=== PATIENT | male | born 1955 | race Caucasian/White ===

== ENCOUNTER 2016-08-28 17:03 | Inpatient (IN) | payer OTHER ==
--- NOTE | ~2016-08-28 | HP ---
History And Physical [facility] [address] [place]. [address] NAME: MERLYN FREEMAN : 59 STATUS : ADM IN [facility]#: [id number] AGE: 60 ADM/REG DATE : 08/28/16 MR#: [id number] REPORT SERV DATE: 08/29/16 DICTATED BY: AQUILES SCHWARTZ DATE: 08/28/16 REPORT STATUS : Draft TRANSCRIBED BY: MODL DATE: 08/28/16 DATE OF ADMISSION: 08/28/2016 CHIEF COMPLAINT: Abdominal pain and fever. HISTORY OF PRESENT ILLNESS: This is a 60-year-old male with a one-day history of intermittent, sharp, and stabbing infraumbilical/suprapubic pain. Denies alleviating or exacerbating factors and states the pain does not radiate. Patient also with a one-week history of fevers and productive cough. The patient states he was recovering from a flu earlier this month, however, cough and fevers returned about a week ago. Patient with a positive fever of 101.5 at home last night. Patient with significant amount of nausea but no emesis. Positive anorexia. Denies changes in bowel movements. Last normal bowel movement was yesterday and was nonbloody. CT scan of abdomen and pelvis was performed and reviewed with evidence of sigmoid diverticulitis and a small contained perforation. The patient denies previous episodes of diverticulitis. REVIEW OF SYSTEMS: A 10-point review of systems was completed and otherwise negative unless stated in the HPI. PAST MEDICAL HISTORY: Heterozygous for factor V Leiden and depression. SURGICAL HISTORY: None. SOCIAL HISTORY: No tobacco or illicit drug use. Occasional alcohol use. MEDICATIONS: Aspirin and Celexa. ALLERGIES: NO KNOWN DRUG ALLERGIES. FAMILY HISTORY: Mom with diabetes. Dad and brother with cardiac disease. Multiple family members heterozygous for factor 5 Leiden. LABORATORY DATA: White blood count 11.3, hemoglobin 17.9, hematocrit 52.1, and platelets 133. Sodium 138, potassium 4.2, chloride 101, bicarb 26, BUN 13, creatinine 1.11, lactate 1.1, and glucose 105. PHYSICAL EXAMINATION: VITAL SIGNS: Temperature 98.9, blood pressure 143/87, pulse 88, respirations 16, and O2 saturation 97% on room air. GENERAL: In no acute distress. Alert and oriented x3. HEENT: Normocephalic and atraumatic. Extraocular muscles intact. NECK: Supple. Trachea midline. CARDIOVASCULAR: Regular rate and rhythm. LUNGS: Clear to auscultation bilaterally. EXTREMITIES: No cyanosis, clubbing, or edema. NEUROLOGIC: No deficits. History And Physical [address] [place]. [address] NAME: MERLYN FREEMAN : 59 STATUS : ADM IN [facility]#: [id number] AGE: 60 ADM/REG DATE : 08/28/16 MR#: [id number] REPORT SERV DATE: 08/29/16 DICTATED BY: AQUILES SCHWARTZ TAISHA DATE: 08/28/16 REPORT STATUS : Draft TRANSCRIBED BY: RADHA DATE: 08/28/16 ABDOMEN: Soft, nondistended, and obese. Tender to palpation to the suprapubic area. Also tenderness to palpation in the left lower quadrant with rebound and some guarding. ASSESSMENT AND PLAN: This is a 60-year-old male with acute diverticulitis. We will admit for bowel rest, IV fluid resuscitation, pain and nausea control, and IV antibiotics. DICTATED BY: Hima Maria MD FD/RADHA Aquiles Schwartz MD / [id number]
[2016-08-28 15:36] LABS: BASOPHILS 0.1 %; BASOPHILS ABSOLUTE 0.01 10/3/uL (0.0-0.16); EOSINOPHILS 0.4 %; EOSINOPHILS ABSOLUTE 0.04 10/3/uL (0.0-0.53); HEMOGLOBIN 17.9 g/dL (13.6-17.8); IMMATURE GRANULOCYTES 0.3 %; IMMATURE GRANULOCYTES ABSOLUTE 0.03 10/3/uL (0.0-0.11); LYMPHOCYTES 12.8 %; LYMPHOCYTES ABSOLUTE 1.45 10/3/uL (0.67-4.30); MEAN CORPUS HGB CONC 34.4 g/dL (32.0-36.0); MEAN CORPUSCULAR HEMOGLOB 33.5 pg (26.0-34.0); MEAN CORPUSCULAR VOLUME 97.6 fL (80-100); MONOCYTES 8.4 %; MONOCYTES ABSOLUTE 0.95 10/3/uL (0.21-1.20); NEUTROPHILS ABSOLUTE 8.83 10/3/uL (2.02-8.40); PLATELET COUNT 153 10/3/uL (150-400); RBC DISTRIBUTION WIDTH 13.7 % (12.0-16.0); RED CELL COUNT 5.34 10/6/uL (4.7-6.1)
[2016-08-28 15:40] LABS: ER CBC TAT 0 Hrs 10 Mins; HEMATOCRIT 52.1 % (40.0-51.0); MANUAL DIFF NO %; WHITE BLOOD CELLS 11.3 10/3/uL (4.5-10.5)
[2016-08-28 15:46] LABS: ASCORBIC ACID (UR NOT ORDER) NEG (NEG); BILIRUBIN, URINE NEGATIVE (NEG); ER URINALYSIS TAT 0 Hrs 11 Mins; KETONE, URINE NEGATIVE (NEG); LEUKOCYTE ESTERASE(NOT OR NEG (NEG); NITRITE (URINE) NEG (NEG); WBC (NOT ORDERED) (RFLEX) 2 (0-5)
[2016-08-28 15:53] LABS: CALCIUM, SERUM 9.3 MG/DL (8.5-10.4); CHLORIDE, SERUM 101 MMOL/L (96-112); CO2 (CARBON DIOXIDE) 26 MMOL/L (24-34); CREATININE 1.11 MG/DL (0.70-1.30); GFR AFRICAN AMERICAN 84 ML/MIN (>=60); GFR NON AFRICAN AMERICAN 73 ML/MIN (>=60); GLUCOSE, SERUM 105 MG/DL (60-99); POTASSIUM, SERUM 4.2 MMOL/L (3.5-5.3); SGOT(AST) 15 U/L (5-40); SGPT(ALT) 55 U/L (5-65); SODIUM, SERUM 138 MMOL/L (135-148); TOTAL PROTEIN 7.7 G/DL (6.0-8.5)
[2016-08-28 15:58] LABS: ALBUMIN 3.8 G/DL (3.5-5.0); ALKALINE PHOSPHATASE 74 U/L (45-117); BUN (BLOOD UREA NITROGEN) 13 MG/DL (6-23); GLOBULIN 3.9 G/DL (2.5-4.1); TOTAL BILIRUBIN 1.6 MG/DL (0-1.2)
[2016-08-28 16:04] LABS: INFLUENZA A SCREEN NEGATIVE (NEGATIVE); INFLUENZA B SCREEN NEGATIVE (NEGATIVE)
[~2016-08-28 17:03] MED LIST: ASAEC PO; CELEXA20 PO; TESTOSTERONE TOP
[2016-08-28 17:34] LABS: LACTATE 1.1 MMOL/L (0.3-2.4)
[2016-08-28] MEDS ORDERED: CELEXA20 PO (18:17)
[2016-08-28] MEDS ORDERED: ASABAYER PO (18:17)
[2016-08-28] MEDS ORDERED: ANDROGEL2.5 GM TOP (18:19)
[2016-08-29 06:51] LABS: BASOPHILS 0.1 %; BASOPHILS ABSOLUTE 0.01 10/3/uL (0.0-0.16); EOSINOPHILS 0.6 %; EOSINOPHILS ABSOLUTE 0.06 10/3/uL (0.0-0.53); HEMOGLOBIN 15.7 g/dL (13.6-17.8); IMMATURE GRANULOCYTES 0.2 %; IMMATURE GRANULOCYTES ABSOLUTE 0.02 10/3/uL (0.0-0.11); LYMPHOCYTES 11.7 %; MEAN CORPUS HGB CONC 34.7 g/dL (32.0-36.0); MEAN CORPUSCULAR HEMOGLOB 34.5 pg (26.0-34.0); MEAN CORPUSCULAR VOLUME 99.6 fL (80-100); MEAN PLATELET VOLUME 11.1 fL (9.2-13.0); MONOCYTES ABSOLUTE 1.03 10/3/uL (0.21-1.20); NEUTROPHILS 77.4 %; NEUTROPHILS ABSOLUTE 7.94 10/3/uL (2.02-8.40); PLATELET COUNT 139 10/3/uL (150-400); RBC DISTRIBUTION WIDTH 13.6 % (12.0-16.0); RED CELL COUNT 4.55 10/6/uL (4.7-6.1); WHITE BLOOD CELLS 10.3 10/3/uL (4.5-10.5)
[2016-08-29 06:56] LABS: HEMATOCRIT 45.3 % (40.0-51.0); MANUAL DIFF NO %
[2016-08-29 06:57] LABS: BUN (BLOOD UREA NITROGEN) 12 MG/DL (6-23); CALCIUM, SERUM 8.4 MG/DL (8.5-10.4); CHLORIDE, SERUM 103 MMOL/L (96-112); CO2 (CARBON DIOXIDE) 23 MMOL/L (24-34); CREATININE 1.03 MG/DL (0.70-1.30); GFR AFRICAN AMERICAN 92 ML/MIN (>=60); GFR NON AFRICAN AMERICAN 80 ML/MIN (>=60); POTASSIUM, SERUM 3.7 MMOL/L (3.5-5.3); SODIUM, SERUM 137 MMOL/L (135-148)
[2016-08-29 06:58] LABS: GLUCOSE, SERUM 139 MG/DL (60-99)
[2016-08-30 06:42] LABS: BASOPHILS 0.1 %; BASOPHILS ABSOLUTE 0.01 10/3/uL (0.0-0.16); EOSINOPHILS 0.8 %; EOSINOPHILS ABSOLUTE 0.07 10/3/uL (0.0-0.53); HEMATOCRIT 43.5 % (40.0-51.0); HEMOGLOBIN 14.8 g/dL (13.6-17.8); IMMATURE GRANULOCYTES 0.2 %; IMMATURE GRANULOCYTES ABSOLUTE 0.02 10/3/uL (0.0-0.11); LYMPHOCYTES 11.5 %; LYMPHOCYTES ABSOLUTE 1.01 10/3/uL (0.67-4.30); MEAN CORPUSCULAR HEMOGLOB 34.3 pg (26.0-34.0); MEAN CORPUSCULAR VOLUME 100.7 fL (80-100); MEAN PLATELET VOLUME 11.2 fL (9.2-13.0); MONOCYTES 9.6 %; MONOCYTES ABSOLUTE 0.84 10/3/uL (0.21-1.20); NEUTROPHILS 77.8 %; NEUTROPHILS ABSOLUTE 6.81 10/3/uL (2.02-8.40); PLATELET COUNT 137 10/3/uL (150-400); RBC DISTRIBUTION WIDTH 13.6 % (12.0-16.0); RED CELL COUNT 4.32 10/6/uL (4.7-6.1); WHITE BLOOD CELLS 8.8 10/3/uL (4.5-10.5)
[2016-08-30 06:45] LABS: MANUAL DIFF NO %
[2016-08-30 06:58] LABS: BUN (BLOOD UREA NITROGEN) 11 MG/DL (6-23); CALCIUM, SERUM 8.3 MG/DL (8.5-10.4); CHLORIDE, SERUM 106 MMOL/L (96-112); CO2 (CARBON DIOXIDE) 23 MMOL/L (24-34); CREATININE 1.09 MG/DL (0.70-1.30); GFR AFRICAN AMERICAN 86 ML/MIN (>=60); GFR NON AFRICAN AMERICAN 74 ML/MIN (>=60); SODIUM, SERUM 138 MMOL/L (135-148)
[2016-08-30 07:01] LABS: GLUCOSE, SERUM 258 MG/DL (60-99); POTASSIUM, SERUM 4.6 MMOL/L (3.5-5.3)
[2016-08-30] MEDS ORDERED: FLAG500TAB PO (12:28)
[2016-08-30] MEDS ORDERED: LEVAQUIN750 MG PO (12:29)
[2016-08-30] MEDS ORDERED: NORCO1 TA1 PO (12:30)
== END 2016-08-30 13:10 | disposition home or self-care (01) | DRG 392 ==
LOC: ER 17:03 → ER/OF 19:33 → 1SO 23:04
PROVIDERS: Hospitalist; Nurse Practitioner; Student in an Organized Health Care Education/Training Program; Thoracic Surgery (Cardiothoracic Vascular Surgery)
DX: K57.20 Diverticulitis of large intestine with perforation and abscess without bleeding (principal); Z68.41 Body mass index [BMI] 40.0-44.9, adult; E66.9 Obesity, unspecified; F32.9 Major depressive disorder, single episode, unspecified; Z79.82 Long term (current) use of aspirin; Z79.899 Other long term (current) drug therapy
CPT/HCPCS: 71020; 74176; 80048; 80053; 81001; 82962; 83605; 85025; 87040; 87804; 99285; A9270-GY; C9113; J1956

== ENCOUNTER 2016-09-04 13:36 | Inpatient (IN) | payer OTHER ==
--- NOTE | ~2016-09-04 | HP ---
History And Physical [address] [place]. [address] NAME: MERLYN FREEMAN : 59 STATUS : ADM IN [facility]#: [id number] AGE: 60 ADM/REG DATE : 09/04/16 MR#: [id number] REPORT SERV DATE: 09/04/16 DICTATED BY: AQUILES SCHWARTZ DATE: 09/04/16 REPORT STATUS : Draft TRANSCRIBED BY: MODL DATE: 09/04/16 DATE OF ADMISSION: 09/04/2016 CHIEF COMPLAINT: Abdominal pain and fever. HISTORY OF PRESENT ILLNESS: Mr. Freeman is a very pleasant 60-year-old man who was recently admitted on between 08/28/2016 and 08/30/2016 with sigmoid diverticulitis with microperforations. He responded very well to Levaquin and Flagyl. The patient reports he did well through the weekend, and then beginning Friday, he started having fatigue and slight shortness of breath. By yesterday, he was starting to have worsening abdominal pain, and by today, he was unable to stand and was febrile. He reports continued bowel movements with no blood in his stools, no vomiting. He continued to take his antibiotics. PAST MEDICAL HISTORY: Includes factor V Leiden and depression. PAST SURGICAL HISTORY: None. HOME MEDICATIONS: Aspirin, Celexa, and the previously mentioned antibiotics. ALLERGIES: NO KNOWN DRUG ALLERGIES. FAMILY HISTORY: His mother has diabetes. Dad and brother, both have cardiac disease and has multiple members in the family with factor V Leiden. SOCIAL HISTORY: He denies tobacco or alcohol abuse. He drinks alcohol socially and he works as a pharmacist. REVIEW OF SYSTEMS: A comprehensive 12-point review of systems was obtained and is negative except for that listed in his present illness. Of note, he has no dysuria or pneumaturia. PHYSICAL EXAMINATION: VITAL SIGNS: Temperature is 98.1, blood pressure 138/95, heart rate is 83, sat 97% on room air. GENERAL: He is ill appearing, but no acute distress. Alert and orient x3. HEENT: Normocephalic and atraumatic. Pupils equal, round, and reactive to light. No scleral icterus. CHEST: Clear to auscultation bilaterally. Nonlabored breathing. CARDIOVASCULAR: Regular rate and rhythm. ABDOMEN: Soft and obese. He has tender to palpation in the left lower quadrant. However, it is still less than he was at his previous admission. He has no peritonitis. EXTREMITIES: Both lower extremities are well perfused. No edema. LABORATORY VALUES: White blood cell count 12.4, hematocrit 49.4, platelets 185, neutrophils 79.9%. Sodium 137, potassium 4.2, chloride 101, bicarb 29, BUN 14, creatinine 1.3 which was 1.09 at discharge, glucose 105, calcium 9.2. Albumin 3.4, LFTs are normal. Lipase is 86. History And Physical [address] [address] NAME: MERLYN FREEMAN : 59 STATUS : ADM IN [facility]#: [id number] AGE: 60 ADM/REG DATE : 09/04/16 MR#: [id number] REPORT SERV DATE: 09/04/16 DICTATED BY: AQUILES SCHWARTZ DATE: 09/04/16 REPORT STATUS : Draft TRANSCRIBED BY: MODSyed DATE: 09/04/16 CT scan was personally reviewed and agree he has worsening sigmoid diverticulitis with what appears to my mind would be pericolic abscess in the mesentery adjacent to his sigmoid colon. There is no free air or free fluid, otherwise. ASSESSMENT AND PLAN: Mr. Freeman is a 60-year-old man with persistent worsening diverticulitis with what appears to be a pericolic abscess. He will be admitted to the hospital, n.p.o., except ice chips, and medications. IV fluid resuscitation. I will change his antibiotics to Zosyn from Levaquin and Flagyl. Given his factor V Leiden, we will start him on Lovenox and continue his aspirin. We will hold that dose in the morning in the event that [facility] plans to take him for procedure. I suspect he will require an operation at some point, however, we will attempt to get him through this initial period in order to be able to perform a bowel prep and potential laparoscopic resection. MAURISIO/RADHA Aquiles Schwartz MD / [id number] CC: MD DAGO Kahn RAUL ALBERTO
--- NOTE | ~2016-09-04 | OP ---
Record Of Operation [facility] [address] [place]. [address] NAME: MERLYN FREEMAN : 59 STATUS : DIS IN PAT#: [id number] AGE: 60 ADM/REG DATE : 09/04/16 MR#: [id number] REPORT SERV DATE: 09/13/16 DICTATED BY: AQUILES SCHWARTZ DATE: 09/13/16 REPORT STATUS : Draft TRANSCRIBED BY: MODL DATE: 09/13/16 DATE OF PROCEDURE: 09/11/2016 PREOPERATIVE DIAGNOSIS: Perforated diverticulitis with abscess. POSTOPERATIVE DIAGNOSIS: Perforated diverticulitis with abscess. PROCEDURE: 1. Laparoscopic sigmoid colectomy with stapled end-to-end anastomosis. 2. Laparoscopic mobilization of the splenic flexure. SURGEON: Aquiles Schwartz MD AUTOMOTIVE UPHOLSTERER: Dr. Schmitt. ANESTHESIA: General. ESTIMATED BLOOD LOSS: 250 mL. SPECIMEN: Sigmoid colon. COMPLICATIONS: None. BRIEF HISTORY: Mr. Freeman is a 60-year-old man, who had initially presented with complicated diverticulitis which resolved with antibiotics. He returned approximately one week later with an abscess. IR drain was placed and he began draining stool from this drain. We elected for surgery, ERAS protocol was initiated. The procedure with the risks including bleeding, infection, possible open, anastomotic leak leading to ostomy were all explained, he agreed to proceed. DESCRIPTION OF PROCEDURE: The abdomen was prepped and draped in normal sterile fashion. We proceeded to the supraumbilical area, with a cutdown technique and inserted a 12 mm trocar at this site. We inserted the scope and the abdomen was insufflated to 15 mmHg of gas. There is no evidence of injury upon placement of trocar. We then placed a 5 mm trocar in the epigastric region in the midline, additional 5 mm trocar in the left upper quadrant, and then one in the left lower quadrant. Placed the patient in Trendelenburg position. He was placed in lithotomy position preoperatively, and roll the table to the right. We began by taking down the splenic flexure. We started at the midportion of the descending colon, scored the peritoneum at the white line of Toldt, and took the LigaSure device to divide the peritoneal up to the spleen. We then retracted the colon caudal, and took down the peritoneal, and the omental attachments away from the spleen, until we had adequate mobilization in order to complete our anastomosis. We then continued dissecting the peritoneum away from the kidney, and the mesentery down, and we continued our dissection down to the area of concern. The sigmoid colon was plastered along the lateral sidewall of the abdomen and pelvis. We had removed the drain preoperatively. We then placed an Record Of Operation [facility] [address] [place]. [address] NAME: MERLYN FREEMAN : 59 STATUS : DIS IN PAT#: [id number] AGE: 60 ADM/REG DATE : 09/04/16 MR#: [id number] REPORT SERV DATE: 09/13/16 DICTATED BY: AQUILES SCHWARTZ DATE: 09/13/16 REPORT STATUS : Draft TRANSCRIBED BY: RADHA DATE: 09/13/16 additional 12 mm trocar in the right lower quadrant and moved the camera to that site. We began by scoring the peritoneum over the sigmoid colon and carefully dissected this away from the lateral sidewall. We then proceeded down to the rectum where the bowel was normal in appearance, and continued this dissection both bluntly, and with electrocautery until we were able to completely mobilize the sigmoid colon away from the lateral sidewall. We then elevated the colon, and identified our area for proximal resection, and then we created a window beneath the colon at this site. We then proceeded by dividing the mesentery from this site down to the peritoneal reflection. Once, we had the entirety of the mesentery mobilized, we elected to enlarge our incision and in order to remove the specimen. We first placed the LILLI stapler with a thick load into the pelvis, and divided the rectosigmoid junction. We then enlarged our incision from the supraumbilical area around the umbilicus and placed a wound protector. We then extracted the specimen through this site and then placed bowel clamps and divided the bowel and passed off the field. We then brought a 29 EEA into the field and elected to sew this into place to do an end-to-end anastomosis. Placed the anvil within the bowel and secured it using a 2-0 Prolene pursestring suture. We then dropped it back into the abdomen and twisted our wound protector to regain pneumoperitoneum. We then placed the EEA stapler into the anus and up to the staple line. We brought the spike out anterior to the staple line and then the two ends. We were able to then fire the stapler and we had two intact donuts. We irrigated the pelvis. Hemostasis was good. We then used a sigmoidoscopy to insufflate and test our anastomosis under water. There were no bubbles. We then irrigated the left lower quadrant and the pelvis copiously until clear. Hemostasis was good. We then removed all trocars under direct visualization. There was no evidence of bleeding. The abdomen was desufflated. We then closed the fascia at the extraction site using interrupted #1 PDS suture. All skin incisions were irrigated with sterile saline. The skin was closed using interrupted 3-0 Vicryl sutures. The abdomen is cleaned and sterile dressings were applied. The patient tolerated the procedure well, he was extubated in the operating room, and he was sent to the recovery room in stable condition. Due to the patient's body habitus as he was obese, as well as difficulty of the case, secondary to severe diverticulitis with abscess, as well as time taking an excess of 3.5 hours, I am applying a 22 modifier to this case. MAURISIO/SANDORL Aquiles Schwartz MD / [id number] CC: MD DAGO Kahn RAUL ALBERTO
--- NOTE | ~2016-09-04 | DS ---
Discharge Summary [facility] [address] [place]. [address] NAME: MERLYN FREEMAN : 59 STATUS : DIS IN PAT#: [id number] AGE: 60 ADM/REG DATE : 09/04/16 MR#: [id number] REPORT SERV DATE: 09/20/16 DICTATED BY: AQUILES SCHWARTZ DATE: 09/20/16 REPORT STATUS : Draft TRANSCRIBED BY: MODSyed DATE: 09/20/16 Data Collection from hospitalization DISCHARGE DIAGNOSES: 1. Perforated diverticulitis with abscess. 2. Factor V Leiden. 3. Depression. CONSULTATIONS: None. PROCEDURES: 1. Laparoscopic sigmoid colectomy with stapled end-to-end anastomosis, laparoscopic mobilization of the splenic flexure, 09/11/2016. 2. CT scan of the abdomen and pelvis without contrast, 09/04/2016. 3. Pelvic drain placement for pericolonic abscess related to diverticulitis, 09/05/2016. 4. CT scan of the abdomen and pelvis with contrast, 09/08/2016. PATHOLOGY: Resected segment of sigmoid colon - benign colonic wall with diverticulosis and acute and chronic diverticulitis with deep inflammatory tract with granulation tissue. Microabscess formation and foreign body type giant cell reaction with reactive serosal changes. Margins not involved with the inflammatory process. Seven benign lymph nodes negative for metastatic carcinoma (0/7). Anastomotic rings - within normal limits. DISCHARGE MEDICATIONS: Mehnaz Aspirin 325 mg every morning, Celexa 20 mg every morning, Endocet 7.5/325 one to two tablets every four hours as needed, AndroGel four sprays topically daily. CONDITION AT DISCHARGE: Stable. DISPOSITION: The patient was discharged home on a moderately low residue diet with activities as instructed. He would follow up with me, 09/17/2016. HOSPITAL COURSE: This is a 60-year-old man, who had recently been admitted on 08/28/2016 and 08/30/2016 with sigmoid diverticulitis with microperforation. He responded very well to Levaquin and Flagyl. He reports that he did well through the weekend and then beginning on Friday, he started having fatigue and slight shortness of breath. By the day prior to admission, he was starting to have worsening abdominal pain, and by the day of this admission, he was unable to stand and he was febrile. He reported having continued bowel movements with no blood in the stools and no vomiting. He continued to take his antibiotics. He was admitted to the hospital at this time for further evaluation and treatment. Upon admission, his white count was 12.4. Creatinine level was 1.3. It had been 1.09 at the time of discharge. A CT scan of the abdomen and pelvis without contrast had shown worsening sigmoid diverticulitis with what appeared to be pericolic abscess in the mesentery adjacent to his sigmoid colon. There was no free air, otherwise. He was held n.p.o. except for ice chips and medications. IV fluid resuscitation was started. His antibiotics were going to be changed to Zosyn from Levaquin and Flagyl. Given his factor V Leiden, we were Discharge Summary [address] [place]. [address] NAME: MERLYN FREEMAN : 59 STATUS : DIS IN PAT#: [id number] AGE: 60 ADM/REG DATE : 09/04/16 MR#: [id number] REPORT SERV DATE: 09/20/16 DICTATED BY: AQUILES SCHWARTZ DATE: 09/20/16 REPORT STATUS : Draft TRANSCRIBED BY: RADHA DATE: 09/20/16 going to start him on Lovenox and continue his aspirin. That dose would be held the following morning in the event that [facility] may take him for a procedure. It was suspected that he would require an operation at some point; however, we would attempt to get him through this initial period in order to be able to perform a bowel prep and potential laparoscopic resection. The following day, he underwent pelvic drain insertion for pericolonic abscess related to diverticulitis; 60-80 mL of pus was evacuated. He had no lower extremity edema. His abdomen was soft. He did have some tenderness to palpation in the left lower quadrant. The drain remained in place. His acute kidney injury was felt due to prerenal azotemia. A fluid bolus was given. On 09/06/2016, he said he was feeling a little better. His T-max was 100. He had drained about 30 mL, but this looked spiculant. He had no lower extremity edema. Creatinine had decreased to 1.09. IV fluids were decreased. Aspirin and Lovenox were continued for his factor V. The next day, he did have some incontinence of stool. Otherwise, he felt about the same. He was tolerating clear liquids. He remained afebrile. Zosyn was continued. On 09/08/2016, CT scan of the abdomen and pelvis with contrast was performed. The pigtail catheter was in the left pelvis with no surrounding contrast. There was edema in the adjacent soft tissues and edema involving the sigmoid colon. This showed no residual abscess. His inflammation had decreased. On 09/09/2016, he wanted to go ahead with surgery. He still had pain. He continued to have tenderness to palpation in the left lower quadrant. Bowel prep was going to be performed. The next day, he said he felt good. Bowel prep was underway. He had minimal output from the drain. On 09/11/2016, he was taken to the operating room, where he underwent the above- mentioned procedure. He tolerated this well. There were no complications. The drain had been removed preoperatively. The following day, he was tolerating full liquids. He had no nausea. Pain was controlled. The Murry catheter was removed. The AVIONICS SUPERVISOR was discontinued. He was placed on oral medication and IV breakthrough medications. We encouraged him to ambulate. Discharge planning was performed. On 09/13/2016, he was passing flatus. He had a very small bowel movement. He was tolerating full liquids. His pain had increased overnight. This resolved with oral medications. He did complain of some reflux. Protonix was given for the reflux. He was placed on a low-residue diet. Discharge instructions were given. Due to his improved and stable condition, he was discharged home with the above- stated instructions. Information collected by: Stacy Oreilly I submit the above information as my discharge summary. TG/MODL Aquiles Schwartz MD / [id number] CC: MD Yfn Kahn
[2016-09-04 12:31] LABS: BASOPHILS 0.2 %; BASOPHILS ABSOLUTE 0.02 10/3/uL (0.0-0.16); EOSINOPHILS 0 %; ER CBC TAT 0 Hrs 09 Mins; HEMATOCRIT 49.4 % (40.0-51.0); HEMOGLOBIN 17.2 g/dL (13.6-17.8); IMMATURE GRANULOCYTES 0.2 %; IMMATURE GRANULOCYTES ABSOLUTE 0.03 10/3/uL (0.0-0.11); LYMPHOCYTES 7.6 %; LYMPHOCYTES ABSOLUTE 0.95 10/3/uL (0.67-4.30); MANUAL DIFF NO %; MEAN CORPUS HGB CONC 34.8 g/dL (32.0-36.0); MEAN CORPUSCULAR HEMOGLOB 34.5 pg (26.0-34.0); MEAN CORPUSCULAR VOLUME 99.2 fL (80-100); MEAN PLATELET VOLUME 10.4 fL (9.2-13.0); MONOCYTES 12.1 %; NEUTROPHILS 79.9 %; NEUTROPHILS ABSOLUTE 9.92 10/3/uL (2.02-8.40); PLATELET COUNT 185 10/3/uL (150-400); RBC DISTRIBUTION WIDTH 13.3 % (12.0-16.0); RED CELL COUNT 4.98 10/6/uL (4.7-6.1); WHITE BLOOD CELLS 12.4 10/3/uL (4.5-10.5)
[2016-09-04 12:31] LABS: ASCORBIC ACID (UR NOT ORDER) NEG (NEG); BILIRUBIN, URINE NEGATIVE (NEG); ER URINALYSIS TAT 0 Hrs 09 Mins; KETONE, URINE NEGATIVE (NEG); LEUKOCYTE ESTERASE(NOT OR TRACE (NEG); NITRITE (URINE) NEG (NEG); WBC (NOT ORDERED) (RFLEX) 1 (0-5)
[2016-09-04 12:46] LABS: A/G RATIO 0.9 (0.7-1.9); ALBUMIN 3.4 G/DL (3.5-5.0); ALKALINE PHOSPHATASE 64 U/L (45-117); BUN (BLOOD UREA NITROGEN) 14 MG/DL (6-23); CALCIUM, SERUM 9.2 MG/DL (8.5-10.4); CHLORIDE, SERUM 101 MMOL/L (96-112); GFR AFRICAN AMERICAN 70 ML/MIN (>=60); GFR NON AFRICAN AMERICAN 60 ML/MIN (>=60); GLOBULIN 3.9 G/DL (2.5-4.1); POTASSIUM, SERUM 4.2 MMOL/L (3.5-5.3); SGOT(AST) 27 U/L (5-40); SGPT(ALT) 61 U/L (5-65); SODIUM, SERUM 137 MMOL/L (135-148); TOTAL PROTEIN 7.3 G/DL (6.0-8.5)
[2016-09-04 12:47] LABS: CO2 (CARBON DIOXIDE) 29 MMOL/L (24-34); GLUCOSE, SERUM 105 MG/DL (60-99); TOTAL BILIRUBIN 0.5 MG/DL (0-1.2)
[~2016-09-04 13:36] MED LIST changes: +ANDROGEL2.5 GM TOP; +ASABAYER PO; +FLAG500TAB PO; +LEVAQUIN750 MG PO; +NORCO1 TA1 PO
[2016-09-05 04:19] LABS: BASOPHILS 0.1 %; BASOPHILS ABSOLUTE 0.01 10/3/uL (0.0-0.16); EOSINOPHILS 0.2 %; EOSINOPHILS ABSOLUTE 0.02 10/3/uL (0.0-0.53); HEMATOCRIT 47.1 % (40.0-51.0); IMMATURE GRANULOCYTES 0.3 %; IMMATURE GRANULOCYTES ABSOLUTE 0.03 10/3/uL (0.0-0.11); LYMPHOCYTES 10.8 %; LYMPHOCYTES ABSOLUTE 0.99 10/3/uL (0.67-4.30); MEAN CORPUSCULAR HEMOGLOB 33.8 pg (26.0-34.0); MEAN CORPUSCULAR VOLUME 99.6 fL (80-100); MEAN PLATELET VOLUME 10.5 fL (9.2-13.0); MONOCYTES 13.6 %; MONOCYTES ABSOLUTE 1.24 10/3/uL (0.21-1.20); NEUTROPHILS ABSOLUTE 6.86 10/3/uL (2.02-8.40); PLATELET COUNT 169 10/3/uL (150-400); RBC DISTRIBUTION WIDTH 13.7 % (12.0-16.0); RED CELL COUNT 4.73 10/6/uL (4.7-6.1); WHITE BLOOD CELLS 9.2 10/3/uL (4.5-10.5)
[2016-09-05 04:23] LABS: MANUAL DIFF NO %
[2016-09-05 04:29] LABS: CALCIUM, SERUM 8.4 MG/DL (8.5-10.4); CHLORIDE, SERUM 104 MMOL/L (96-112); CO2 (CARBON DIOXIDE) 27 MMOL/L (24-34); CREATININE 1.49 MG/DL (0.70-1.30); GFR AFRICAN AMERICAN 59 ML/MIN (>=60); GFR NON AFRICAN AMERICAN 51 ML/MIN (>=60); GLUCOSE, SERUM 103 MG/DL (60-99); POTASSIUM, SERUM 4.2 MMOL/L (3.5-5.3); SODIUM, SERUM 138 MMOL/L (135-148)
[2016-09-05 04:39] LABS: BUN (BLOOD UREA NITROGEN) 18 MG/DL (6-23)
[2016-09-06 05:16] LABS: CALCIUM, SERUM 7.9 MG/DL (8.5-10.4); CHLORIDE, SERUM 107 MMOL/L (96-112); CO2 (CARBON DIOXIDE) 24 MMOL/L (24-34); CREATININE 1.09 MG/DL (0.70-1.30); GFR AFRICAN AMERICAN 86 ML/MIN (>=60); GFR NON AFRICAN AMERICAN 74 ML/MIN (>=60); SODIUM, SERUM 138 MMOL/L (135-148)
[2016-09-06 05:24] LABS: BUN (BLOOD UREA NITROGEN) 9 MG/DL (6-23); GLUCOSE, SERUM 127 MG/DL (60-99)
[2016-09-06 05:35] LABS: BASOPHILS 0.2 %; BASOPHILS ABSOLUTE 0.01 10/3/uL (0.0-0.16); EOSINOPHILS ABSOLUTE 0.06 10/3/uL (0.0-0.53); HEMATOCRIT 43.2 % (40.0-51.0); HEMOGLOBIN 14.6 g/dL (13.6-17.8); IMMATURE GRANULOCYTES 0.7 %; IMMATURE GRANULOCYTES ABSOLUTE 0.04 10/3/uL (0.0-0.11); LYMPHOCYTES 18.9 %; LYMPHOCYTES ABSOLUTE 1.09 10/3/uL (0.67-4.30); MEAN CORPUS HGB CONC 33.8 g/dL (32.0-36.0); MEAN CORPUSCULAR HEMOGLOB 34.1 pg (26.0-34.0); MEAN CORPUSCULAR VOLUME 100.9 fL (80-100); MEAN PLATELET VOLUME 10.3 fL (9.2-13.0); MONOCYTES 16.5 %; MONOCYTES ABSOLUTE 0.95 10/3/uL (0.21-1.20); NEUTROPHILS 62.7 %; NEUTROPHILS ABSOLUTE 3.62 10/3/uL (2.02-8.40); PLATELET COUNT 151 10/3/uL (150-400); RED CELL COUNT 4.28 10/6/uL (4.7-6.1); WHITE BLOOD CELLS 5.8 10/3/uL (4.5-10.5)
[2016-09-06 05:37] LABS: MANUAL DIFF NO %
[2016-09-07 06:31] LABS: BASOPHILS 0.2 %; BASOPHILS ABSOLUTE 0.01 10/3/uL (0.0-0.16); EOSINOPHILS 2.1 %; EOSINOPHILS ABSOLUTE 0.11 10/3/uL (0.0-0.53); HEMOGLOBIN 14.3 g/dL (13.6-17.8); IMMATURE GRANULOCYTES 0.6 %; IMMATURE GRANULOCYTES ABSOLUTE 0.03 10/3/uL (0.0-0.11); LYMPHOCYTES ABSOLUTE 1.31 10/3/uL (0.67-4.30); MEAN CORPUSCULAR HEMOGLOB 33.7 pg (26.0-34.0); MEAN CORPUSCULAR VOLUME 99.1 fL (80-100); MEAN PLATELET VOLUME 10.1 fL (9.2-13.0); MONOCYTES 19.4 %; MONOCYTES ABSOLUTE 1.02 10/3/uL (0.21-1.20); NEUTROPHILS 52.7 %; NEUTROPHILS ABSOLUTE 2.77 10/3/uL (2.02-8.40); PLATELET COUNT 148 10/3/uL (150-400); RBC DISTRIBUTION WIDTH 13.6 % (12.0-16.0); RED CELL COUNT 4.24 10/6/uL (4.7-6.1); WHITE BLOOD CELLS 5.3 10/3/uL (4.5-10.5)
[2016-09-07 06:32] LABS: MANUAL DIFF NO %
[2016-09-07 06:47] LABS: BUN (BLOOD UREA NITROGEN) 7 MG/DL (6-23); CALCIUM, SERUM 8.2 MG/DL (8.5-10.4); CHLORIDE, SERUM 107 MMOL/L (96-112); CO2 (CARBON DIOXIDE) 26 MMOL/L (24-34); CREATININE 1.09 MG/DL (0.70-1.30); GFR AFRICAN AMERICAN 86 ML/MIN (>=60); GFR NON AFRICAN AMERICAN 74 ML/MIN (>=60); POTASSIUM, SERUM 4.1 MMOL/L (3.5-5.3); SODIUM, SERUM 140 MMOL/L (135-148)
[2016-09-07 06:52] LABS: GLUCOSE, SERUM 99 MG/DL (60-99)
[2016-09-08 04:46] LABS: BASOPHILS 0.2 %; BASOPHILS ABSOLUTE 0.01 10/3/uL (0.0-0.16); EOSINOPHILS 2.8 %; EOSINOPHILS ABSOLUTE 0.14 10/3/uL (0.0-0.53); HEMOGLOBIN 14.9 g/dL (13.6-17.8); IMMATURE GRANULOCYTES 0.8 %; IMMATURE GRANULOCYTES ABSOLUTE 0.04 10/3/uL (0.0-0.11); LYMPHOCYTES 27.7 %; LYMPHOCYTES ABSOLUTE 1.38 10/3/uL (0.67-4.30); MEAN CORPUS HGB CONC 34.7 g/dL (32.0-36.0); MEAN CORPUSCULAR HEMOGLOB 34.3 pg (26.0-34.0); MEAN CORPUSCULAR VOLUME 99.1 fL (80-100); MEAN PLATELET VOLUME 10.4 fL (9.2-13.0); MONOCYTES 13.1 %; MONOCYTES ABSOLUTE 0.65 10/3/uL (0.21-1.20); NEUTROPHILS 55.4 %; NEUTROPHILS ABSOLUTE 2.76 10/3/uL (2.02-8.40); PLATELET COUNT 148 10/3/uL (150-400); RBC DISTRIBUTION WIDTH 13.3 % (12.0-16.0); RED CELL COUNT 4.34 10/6/uL (4.7-6.1)
[2016-09-08 04:50] LABS: MANUAL DIFF NO %
[2016-09-08 04:57] LABS: BUN (BLOOD UREA NITROGEN) 6 MG/DL (6-23); CALCIUM, SERUM 8.5 MG/DL (8.5-10.4); CHLORIDE, SERUM 107 MMOL/L (96-112); CO2 (CARBON DIOXIDE) 27 MMOL/L (24-34); CREATININE 0.98 MG/DL (0.70-1.30); GFR AFRICAN AMERICAN 98 ML/MIN (>=60); GFR NON AFRICAN AMERICAN 85 ML/MIN (>=60); GLUCOSE, SERUM 89 MG/DL (60-99); POTASSIUM, SERUM 4.3 MMOL/L (3.5-5.3); SODIUM, SERUM 141 MMOL/L (135-148)
[2016-09-09 04:19] LABS: BASOPHILS 0.4 %; BASOPHILS ABSOLUTE 0.02 10/3/uL (0.0-0.16); EOSINOPHILS 3.4 %; EOSINOPHILS ABSOLUTE 0.19 10/3/uL (0.0-0.53); HEMATOCRIT 42.8 % (40.0-51.0); HEMOGLOBIN 14.3 g/dL (13.6-17.8); IMMATURE GRANULOCYTES 0.9 %; IMMATURE GRANULOCYTES ABSOLUTE 0.05 10/3/uL (0.0-0.11); LYMPHOCYTES 25.1 %; LYMPHOCYTES ABSOLUTE 1.41 10/3/uL (0.67-4.30); MEAN CORPUS HGB CONC 33.4 g/dL (32.0-36.0); MEAN CORPUSCULAR HEMOGLOB 32.6 pg (26.0-34.0); MEAN CORPUSCULAR VOLUME 97.7 fL (80-100); MEAN PLATELET VOLUME 10.5 fL (9.2-13.0); MONOCYTES ABSOLUTE 0.56 10/3/uL (0.21-1.20); NEUTROPHILS 60.2 %; NEUTROPHILS ABSOLUTE 3.38 10/3/uL (2.02-8.40); PLATELET COUNT 171 10/3/uL (150-400); RBC DISTRIBUTION WIDTH 13.3 % (12.0-16.0); RED CELL COUNT 4.38 10/6/uL (4.7-6.1); WHITE BLOOD CELLS 5.6 10/3/uL (4.5-10.5)
[2016-09-09 04:29] LABS: BUN (BLOOD UREA NITROGEN) 8 MG/DL (6-23); CALCIUM, SERUM 8.6 MG/DL (8.5-10.4); CHLORIDE, SERUM 104 MMOL/L (96-112); CO2 (CARBON DIOXIDE) 31 MMOL/L (24-34); CREATININE 1.01 MG/DL (0.70-1.30); GFR AFRICAN AMERICAN 95 ML/MIN (>=60); GFR NON AFRICAN AMERICAN 82 ML/MIN (>=60); GLUCOSE, SERUM 89 MG/DL (60-99); POTASSIUM, SERUM 4.2 MMOL/L (3.5-5.3); SODIUM, SERUM 142 MMOL/L (135-148)
[2016-09-09 04:38] LABS: MANUAL DIFF NO %
[2016-09-11 06:48] LABS: BASOPHILS 0.3 %; BASOPHILS ABSOLUTE 0.02 10/3/uL (0.0-0.16); EOSINOPHILS 3.5 %; EOSINOPHILS ABSOLUTE 0.24 10/3/uL (0.0-0.53); HEMATOCRIT 43.5 % (40.0-51.0); HEMOGLOBIN 14.7 g/dL (13.6-17.8); IMMATURE GRANULOCYTES 1.6 %; IMMATURE GRANULOCYTES ABSOLUTE 0.11 10/3/uL (0.0-0.11); LYMPHOCYTES 20.8 %; LYMPHOCYTES ABSOLUTE 1.41 10/3/uL (0.67-4.30); MANUAL DIFF NO %; MEAN CORPUS HGB CONC 33.8 g/dL (32.0-36.0); MEAN CORPUSCULAR HEMOGLOB 33.6 pg (26.0-34.0); MEAN CORPUSCULAR VOLUME 99.5 fL (80-100); MEAN PLATELET VOLUME 10.3 fL (9.2-13.0); MONOCYTES 6.3 %; MONOCYTES ABSOLUTE 0.43 10/3/uL (0.21-1.20); NEUTROPHILS 67.5 %; NEUTROPHILS ABSOLUTE 4.57 10/3/uL (2.02-8.40); PLATELET COUNT 177 10/3/uL (150-400); RBC DISTRIBUTION WIDTH 13.2 % (12.0-16.0); RED CELL COUNT 4.37 10/6/uL (4.7-6.1); WHITE BLOOD CELLS 6.8 10/3/uL (4.5-10.5)
[2016-09-11 07:03] LABS: BUN (BLOOD UREA NITROGEN) 7 MG/DL (6-23); CALCIUM, SERUM 8.5 MG/DL (8.5-10.4); CHLORIDE, SERUM 105 MMOL/L (96-112); CO2 (CARBON DIOXIDE) 27 MMOL/L (24-34); CREATININE 1.13 MG/DL (0.70-1.30); GFR AFRICAN AMERICAN 83 ML/MIN (>=60); GFR NON AFRICAN AMERICAN 71 ML/MIN (>=60); POTASSIUM, SERUM 3.9 MMOL/L (3.5-5.3); SODIUM, SERUM 142 MMOL/L (135-148)
[2016-09-11 07:04] LABS: GLUCOSE, SERUM 110 MG/DL (60-99)
[2016-09-13] MEDS ORDERED: ENDOCET1 TA1 PO (12:56)
== END 2016-09-13 14:06 | disposition home or self-care (01) | DRG 330 ==
LOC: ER 13:36 → 4SO 19:07
PROVIDERS: Nurse Practitioner; Surgery
PROC: 0W9G30Z Drainage of Peritoneal Cavity with Drainage Device, Percutaneous Approach (ICD-10-PCS; 2016-09-05)
PROC: 0DBN4ZZ Excision of Sigmoid Colon, Percutaneous Endoscopic Approach (ICD-10-PCS; principal; 2016-09-11 09:15)
DX: K57.20 Diverticulitis of large intestine with perforation and abscess without bleeding (principal); D68.51 Activated protein C resistance; Z68.41 Body mass index [BMI] 40.0-44.9, adult; N17.9 Acute kidney failure, unspecified; E66.01 Morbid (severe) obesity due to excess calories; Z79.82 Long term (current) use of aspirin; F32.9 Major depressive disorder, single episode, unspecified; G47.33 Obstructive sleep apnea (adult) (pediatric)
CPT/HCPCS: 10030; 49418; 74176; 74177; 80048; 80053; 81001; 83690; 85025; 87070; 87075; 87077; 87186; 87205; 88307; 93005; 96374; 96375; 99285; A9270-GY; C1729; C1769; J0461; J0694; J1170; J1885; J2250; J2270; J2405; J2543; J2710; J2795; J3010; Q9967

== ENCOUNTER 2016-09-27 15:47 | Emergency (ER) | payer OTHER ==
[2016-09-27 15:08] LABS: WBC (NOT ORDERED) (RFLEX) 0 (0-5)
[2016-09-27 15:13] LABS: BASOPHILS 0.1 %; BASOPHILS ABSOLUTE 0.01 10/3/uL (0.0-0.16); EOSINOPHILS 3.1 %; EOSINOPHILS ABSOLUTE 0.22 10/3/uL (0.0-0.53); HEMATOCRIT 44.8 % (40.0-51.0); HEMOGLOBIN 15.7 g/dL (13.6-17.8); IMMATURE GRANULOCYTES 0.3 %; IMMATURE GRANULOCYTES ABSOLUTE 0.02 10/3/uL (0.0-0.11); LYMPHOCYTES 17.2 %; LYMPHOCYTES ABSOLUTE 1.23 10/3/uL (0.67-4.30); MANUAL DIFF NO %; MEAN CORPUSCULAR HEMOGLOB 34.3 pg (26.0-34.0); MEAN CORPUSCULAR VOLUME 97.8 fL (80-100); MEAN PLATELET VOLUME 10.3 fL (9.2-13.0); MONOCYTES 11.2 %; NEUTROPHILS 68.1 %; NEUTROPHILS ABSOLUTE 4.87 10/3/uL (2.02-8.40); PLATELET COUNT 151 10/3/uL (150-400); RBC DISTRIBUTION WIDTH 13.5 % (12.0-16.0); RED CELL COUNT 4.58 10/6/uL (4.7-6.1); WHITE BLOOD CELLS 7.2 10/3/uL (4.5-10.5)
[2016-09-27 15:16] LABS: ASCORBIC ACID (UR NOT ORDER) NEG (NEG); BILIRUBIN, URINE NEGATIVE (NEG); ER URINALYSIS TAT 0 Hrs 09 Mins; KETONE, URINE NEGATIVE (NEG); LEUKOCYTE ESTERASE(NOT OR NEG (NEG); NITRITE (URINE) NEG (NEG)
[2016-09-27 15:27] LABS: A/G RATIO 0.9 (0.7-1.9); ALBUMIN 3.6 G/DL (3.5-5.0); ALKALINE PHOSPHATASE 101 U/L (45-117); CALCIUM, SERUM 8.9 MG/DL (8.5-10.4); CHLORIDE, SERUM 102 MMOL/L (96-112); CO2 (CARBON DIOXIDE) 30 MMOL/L (24-34); CREATININE 0.97 MG/DL (0.70-1.30); GFR AFRICAN AMERICAN 99 ML/MIN (>=60); GFR NON AFRICAN AMERICAN 86 ML/MIN (>=60); GLOBULIN 3.8 G/DL (2.5-4.1); POTASSIUM, SERUM 3.9 MMOL/L (3.5-5.3); SGOT(AST) 30 U/L (5-40); SGPT(ALT) 61 U/L (5-65); SODIUM, SERUM 140 MMOL/L (135-148); TOTAL BILIRUBIN 0.6 MG/DL (0-1.2); TOTAL PROTEIN 7.4 G/DL (6.0-8.5)
[2016-09-27 15:29] LABS: BUN (BLOOD UREA NITROGEN) 10 MG/DL (6-23); GLUCOSE, SERUM 80 MG/DL (60-99)
[~2016-09-27 15:47] MED LIST changes: +ENDOCET1 TA1 PO
== END 2016-09-27 17:45 | disposition home or self-care (01) ==
LOC: ER 15:47
PROVIDERS: Emergency Medicine
DX: G89.18 Other acute postprocedural pain (principal); R10.30 Lower abdominal pain, unspecified; Z79.899 Other long term (current) drug therapy; Z79.82 Long term (current) use of aspirin
CPT/HCPCS: 80053; 81001; 83690; 85025; 96374; 96375; 99284; J2405